=== PATIENT | male | born 1980 | race Caucasian/White ===

== ENCOUNTER 2020-02-10 14:10 | Emergency (ER) | payer SELFPAY ==
[~2020-02-10] VITALS: Ht 190.5 cm; Wt 112.2 kg
[2020-02-10 14:25] VITALS: BP 141/88
--- NOTE | 2020-02-10 14:37 | PHYS DOC ---
Adult General Chief Complaint Chief Complaint: SHOULDER INJURY HPI HPI Patient is a 39-year-old male patient presenting to the ED today complaining on a lump on his left neck region that he noted this morning when he went to urgent care to get his stitches removed from a finger. Patient denies any fever, cough, congestion, sore throat. He states he has history of smoking. (SOHA LUNA APRN) Review of Systems Review of Systems Constitutional: Denies fever or chills [] HENT: Lump on the neck. Denies nasal congestion or sore throat [] Respiratory: Denies cough or shortness of breath [] Cardiovascular: No additional information not addressed in HPI [] GI: Denies abdominal pain, nausea, vomiting, bloody stools or diarrhea [] : Denies dysuria or hematuria [] Musculoskeletal: Denies back pain or joint pain [] Integument: Denies rash or skin lesions [] Neurologic: Denies headache, focal weakness or sensory changes [] All other systems were reviewed and found to be within normal limits, except as documented in this note. (SOHA LUNA APRN) Physical Exam Physical Exam Constitutional: Well developed, well nourished, no acute distress, non-toxic appearance. [] HENT: Normocephalic, atraumatic, bilateral external ears normal, oropharynx moist, no oral exudates, nose normal. [] Left supraclavicular region with two small palpable masses suspicious of enlarged lymph nodes each approx. 1x1cm. There is no erythema to this region, there is no pain or tenderness. There is no fluctuance. Eyes: PERRLA, EOMI, conjunctiva normal, no discharge. [] Neck: Normal range of motion, no tenderness, supple, no stridor. [] Cardiovascular:Heart rate regular rhythm, no murmur [] Lungs & Thorax: Bilateral breath sounds clear to auscultation [] Abdomen: Bowel sounds normal, soft, no tenderness, no masses, no pulsatile masses. [] Skin: Warm, dry, no erythema, no rash. [] Back: No tenderness, no CVA tenderness. [] Extremities: No tenderness, no cyanosis, no clubbing, ROM intact, no edema. [] Neurologic: Alert and oriented X 3, normal motor function, normal sensory function, no focal deficits noted. [] Psychologic: Affect normal, judgement normal, mood normal. [] (SOHA LUNA APRN) EKG EKG [] (SOHA LUNA APRN) Radiology/Procedures Radiology/Procedures []PROCEDURE: NECK SOFT TISSUE NECK SOFT TISSUE Clinical Indication: Reason: lump on neck / Spl. Instructions: / History: Comparison: None. TECHNIQUE: Real-time ultrasound imaging of the left neck is performed. Findings: The area of interest is left supraclavicular. There is a superficial lymph node measuring 8 x 9 x 6 mm. Lateral to this there is a second lymph node measuring 8 x 7 x 6 mm. Echogenic hilum with feeding vessel is noted. There is cortical thickening of both lymph nodes. Lymph nodes appear reactive. IMPRESSION: There are 2 subcentimeter reactive appearing left supraclavicular lymph nodes. Recommend physical exam follow-up. If follow-up is equivocal repeat ultrasound could be performed in about 6 weeks. If lymph nodes do not regress other diagnoses such as lymphoproliferative disorder should be considered. Electronically signed by: Abraham Rincon MD (02/10/2020 2:59 PM) [id number] DICTATED AND SIGNED BY: ABRAHAM RINCON MD DATE: 02/10/20 1459 CC: SOHA LUNA APRN; PCP,NO; JOSE F RODRIGUEZ DO ~ (SOHA LUNA APRN) Heart Score Risk Factors: Risk Factors: DM, Current or recent (<one month) smoker, HTN, HLP, family history of CAD, obesity. Risk Scores: Risk Factors: DM, Current or recent (<one month) smoker, HTN, HLP, family history of CAD, obesity. (SOHA LUNA APRN) Course & Med Decision Making Course & Med Decision Making Pertinent Labs and Imaging studies reviewed. (See chart for details) This is a 39-year-old male patient presenting to the ED today with enlarged lymph node on the left side of the neck. Limited ultrasound of the region was noted for 2 subcentimeter reactive appearing left supraclavicular lymph nodes. Repeatultrasound could be performed in about 6 weeks.D/c to home. F/u with PCP for repeat ultrasound and monitoring of the lympnode. (SOHA LUNA APRN) Dragon Disclaimer Dragon Disclaimer This electronic medical record was generated, in whole or in part, using a voice recognition dictation system. (SOHA LUNA APRN) Departure Departure: Impression: Primary Impression: Lymphadenopathy, cervical Disposition: 01 DC HOME SELF CARE/HOMELESS Condition: STABLE Referrals: PCP,NO (PCP) follow up with your PCP in one week Additional Instructions: You were evaluated for enlarged lymph node on your clavicle region. We highly recommend you follow-up with your primary care doctor in the next 1 to 2 weeks and they can schedule you for anr outpatient ultrasound in 6 weeks. Attending Signature Attending Signature I have reviewed the PA/CASH APPLICATIONS REPRESENTATIVE's note and plan of care. I was available for consultation as needed during the patient's visit in the emergency department. I agree with the clinical impression, plan, and disposition. (JOSE F RODRIGUEZ DO) SOHA LUNA APRN Feb 10, 2020 14:37 JOSE F RODRIGUEZ DO Feb 10, 2020 16:42
--- NOTE | 2020-02-10 15:02 | RAD ---
NECK SOFT TISSUE Clinical Indication: Reason: lump on neck / Spl. Instructions: / History: Comparison: None. TECHNIQUE: Real-time ultrasound imaging of the left neck is performed. Findings: The area of interest is left supraclavicular. There is a superficial lymph node measuring 8 x 9 x 6 mm. Lateral to this there is a second lymph node measuring 8 x 7 x 6 mm. Echogenic hilum with feeding vessel is noted. There is cortical thickening of both lymph nodes. Lymph nodes appear reactive. IMPRESSION: There are 2 subcentimeter reactive appearing left supraclavicular lymph nodes. Recommend physical exam follow-up. If follow-up is equivocal repeat ultrasound could be performed in about 6 weeks. If lymph nodes do not regress other diagnoses such as lymphoproliferative disorder should be considered. Electronically signed by: Abraham Erazo MD (02/10/2020 2:59 PM) [id number]
== END 2020-02-10 15:40 | disposition home or self-care (01) ==
LOC: ER 14:10
DX: R59.0 Localized enlarged lymph nodes (principal); Z87.891 Personal history of nicotine dependence
CPT/HCPCS: 76536; 99284

== ENCOUNTER 2020-12-29 21:43 | Emergency (ER) | payer SELFPAY ==
[~2020-12-29] VITALS: Ht 188 cm; Wt 100.0 kg
[2020-12-29] MEDS ORDERED: AMOX500C PO (22:07)
--- NOTE | 2020-12-29 22:09 | PHYS DOC ---
Past History Past Medical History: No Pertinent History Past Surgical History: No Surgical History Alcohol Use: Occasionally Adult General Chief Complaint Chief Complaint: DENTAL PROBLEM HPI HPI Patient is a 40-year-old male who presents with dental pain, 7 out of 10, dull and achy in nature on bottom right molar for several days. States he has not been able to get a hold of a dentist. States he has taken some ibuprofen with minimal relief. Denies any fevers, neck pain, pain or trouble swallowing, nausea or vomiting. Review of Systems Review of Systems Review of systems otherwise unremarkable except noted in HPI Physical Exam Physical Exam Constitutional: Well developed, well nourished, no acute distress, non-toxic appearance. [] HENT: Normocephalic, atraumatic, bilateral external ears normal, oropharynx moist, no oral exudates, poor dentition generally with probable dental carry, nose normal. [] Eyes: conjunctiva normal, no discharge. [] Neck: Normal range of motion, no tenderness, supple, no stridor. [] Extremities: No tenderness, no cyanosis, no clubbing, ROM intact, no edema. [] Neurologic: Alert and oriented X 3, normal motor function, normal sensory f unction, no focal deficits noted. [] Psychologic: Affect normal, judgement normal, mood normal. [] EKG EKG [] Radiology/Procedures Radiology/Procedures [] Heart Score C/O Chest Pain: No Risk Factors: Risk Factors: DM, Current or recent (<one month) smoker, HTN, HLP, family history of CAD, obesity. Risk Scores: Risk Factors: DM, Current or recent (<one month) smoker, HTN, HLP, family history of CAD, obesity. Course & Med Decision Making Course & Med Decision Making Patient is a 40-year-old male who presents with dental pain Vital signs not concerning. Physical exam noted above. Patient declined dental block. Started on antibiotics due to concern for infection. Given oral pain medicine. Given Hurricaine spray. Advised on symptom management at home. Gave contact information for free dental clinics in the emergency dentist. Advised to call them all in the morning to get an appointment set up. Gave return precautions to the ED. Patient grateful, verbalized understanding and agreed with plan of discharge. [] Dragon Disclaimer Dragon Disclaimer This electronic medical record was generated, in whole or in part, using a voice recognition dictation system. Departure Departure: Impression: Primary Impression: Pain, dental Disposition: HOME / SELF CARE / HOMELESS Condition: GOOD Referrals: PCP,NO (PCP) JUANJOSE ALCAZAR MD Patient Instructions: Dental Pain Additional Instructions: Thanks for coming into the emergency department tonight and allowing us to take care of you. Please read the attached information to go over some of the things we discussed. Please continue a Tylenol, ibuprofen and Orajel treatment plan as we discussed. Please take your antibiotics as prescribed. Please call around to the [facility] dental clinics to set up an appointment as soon as possible discussed the need for fillings versus root canal versus extraction. Please come back to the ED with new or concerning symptoms as discussed. Scripts Amoxicillin (AMOXICILLIN) 500 Mg Capsule 1 CAP PO BID for dental for 10 Days, #20 CAP Prov: TRISTIAN JEFFREY MD 12/29/20 TRISTIAN JEFFREY MD Dec 29, 2020 22:09
[2020-12-29 22:11] VITALS: BP 147/90
[2020-12-29] MEDS ORDERED: AMOXICILLIN 250 MG CAPSULE PO ONE (22:15)
[2020-12-29] MEDS ORDERED: BENZOCAINE ONE 20% MUCOSAL SPRAY. MM (22:15)
[2020-12-29] MEDS ORDERED: oxyCODONE/APAP 5/325 1 TAB TABLET PO ONE (22:15)
[2020-12-29] MEDS ORDERED: IBUPROFEN 600 MG TABLET. PO ONE (22:15)
== END 2020-12-29 22:38 | disposition home or self-care (01) ==
LOC: ER 21:43
DX: K08.89 Other specified disorders of teeth and supporting structures (principal)
CPT/HCPCS: 99284